=== PATIENT | male | born 1980 | race Two or more races ===

== ENCOUNTER 2018-11-08 22:27 | Inpatient (IN) | payer MEDICAID ==
[~2018-11-08] VITALS: Ht 167.6 cm; Wt 62.4 kg
[2018-11-08 22:27] VITALS: BP 141/98
--- NOTE | 2018-11-08 22:27 | NUR ---
ED Nurse Note: Pt arrived ED from Home. C/o chest pain today, 03/15. Pt is A/O X4. Bp 141/98, Hr 105, O2 sat 100% on room air. Dr. Sparks at bed side, waiting for orders.
[2018-11-08] MEDS ORDERED: Mylanta II UD 30ml ORAL ONE (22:30)
[2018-11-08] MEDS ORDERED: Aspirin Baby 81mg ORAL ONE (22:30)
--- NOTE | 2018-11-08 22:40 | NUR ---
ED Nurse Note: Blood and Urine collected and sent to Lab.
--- NOTE | 2018-11-08 22:46 | Emergency Room Report ---
History of Present Illness General Chief Complaint: Chest Pain Source: Patient, Friend Present Illness [facility] This a 38-year-old male with history of diabetes but not taking any medication. He hasn't seen a doctor in a while. He presents with chief complaint of chest pain. Onset was acute and occurred about an hour prior to arrival. Pain is sharp in nature. Localized to the left chest area. No radiation. No nausea no vomiting. No fever chills. No diaphoresis. No exertional component. Pain is 9 out of 10. He had one episode of pain like this before but never this severe. Not take anything for it. Allergies: Coded Allergies: No Known Allergies (Unverified , 11/08/18) Patient History Past Medical History: see triage record, old chart reviewed, DM Past Surgical History: other Pertinent Family History: none Social History: Reports: smoking Immunizations: other Reviewed Nursing Documentation: PMH: Agreed; PSxH: Agreed Review of Systems Eye: Denies: eye pain, blurred vision ENT: Denies: ear pain, nose congestion, throat swelling Respiratory: Denies: cough, shortness of breath Cardiovascular: Reports: chest pain; Denies: palpitations Gastrointestinal: Denies: abdominal pain, diarrhea, nausea, vomiting Musculoskeletal: Denies: back pain, joint pain Skin: Denies: rash Neurological: Denies: headache, numbness Endocrine: Denies: increased thirst, increased urine Hematologic/Lymphatic: Denies: easy bruising All Other Systems: negative except mentioned in HPI Physical Exam Vital Signs Date Time Temp Pulse Resp B/P (MAP) Pulse Ox O2 Delivery O2 Flow Rate FiO2 11/08/18 22:35 98.1 79 25 143/102 100 Room Air vitals with high blood pressure. Repeat normal. Sp02 EP Interpretation: reviewed, normal General Appearance: well appearing, no apparent distress, alert Head: normocephalic, atraumatic Eyes: bilateral eye PERRL, bilateral eye EOMI ENT: hearing grossly normal, normal pharynx Neck: full range of motion, supple, no meningismus Respiratory: chest non-tender, lungs clear, normal breath sounds Cardiovascular #1: regular rate, rhythm, no murmur Gastrointestinal: normal bowel sounds, non tender, no mass, no organomegaly, no bruit, non-distended Musculoskeletal: back normal, gait/station normal, normal range of motion Psychiatric: mood/affect normal Skin: warm/dry Medical Decision Making Diagnostic Impression: Primary Impression: Methamphetamine abuse Additional Impressions: Hyperglycemia due to type 2 diabetes mellitus Qualified Codes: E11.65 - Type 2 diabetes mellitus with hyperglycemia ACS (acute coronary syndrome) ER Course Patient present with sharp chest pain status post drug abuse. First troponin was slightly abnormal in the indeterminate zone. Second troponin getting higher very I suspect that this may be a non-STEMI. Patient is pain-free. He received aspirin and Lovenox here. Will admit for further workup. Hyperglycemia treated with Lovenox. I Contacted Dr. Zavala for admission. Lab Results Impression labs unremarkable EKG Diagnostic Results Rate: normal Rhythm: NSR ST Segments: no acute changes ASA given to the pt in ED: Yes Rhythm Strip Diag. Results Rhythm Strip Time: 22:46 EP Interpretation: yes Rate: 95 Rhythm: NSR, no PVC's, no ectopy Chest X-Ray Diagnostic Results Chest X-Ray Diagnostic Results : Chest X-Ray Ordered: Yes # of Views/Limited/Complete: 1 View Indication: Chest Pain EP Interpretation: Yes Interpretation: no consolidation, no effusion, no pneumothorax, no acute cardiopulmonary disease Impression: No acute disease Electronically Signed by: Omi Sparks MD Last Vital Signs Date Time Temp Pulse Resp B/P (MAP) Pulse Ox O2 Delivery O2 Flow Rate FiO2 11/08/18 22:35 98.1 79 25 143/102 100 Room Air Status: improved Disposition: ADMITTED INPATIENT Condition: Serious Scripts Metformin Hcl* (METFORMIN HCL*) 500 Mg Tablet 500 MG ORAL TWICE A DAY, #60 TAB Prov: Omi Sparks MD 11/09/18 Patient Instructions: Nonspecific Chest Pain Additional Instructions: . Omi Sparks MD Nov 08, 2018 22:46
[2018-11-08 22:48] LABS: BASOPHILS % (AUTO) 0.6 % (0.0-2.0); EOSINOPHILS % (AUTO) 0.1 % (0.0-3.0); HEMATOCRIT 47.9 % (42.0-52.0); HEMOGLOBIN 17.1 G/DL (14.2-18.0); LYMPHOCYTES % (AUTO) 13.9 % (20.0-45.0); MEAN CORPUSCULAR VOLUME 87 FL (80-99); MONOCYTES % (AUTO) 4.9 % (1.0-10.0); NEUTROPHILS % (AUTO) 80.5 % (45.0-75.0); PLATELET COUNT 183 K/UL (150-450); RED BLOOD COUNT 5.51 M/UL (4.70-6.10); RED CELL DISTRIBUTION WIDTH 11.3 % (11.6-14.8); WHITE BLOOD COUNT 10.6 K/UL (4.8-10.8)
--- NOTE | 2018-11-08 22:50 | NUR ---
ED Nurse Note: Meds given as ordered.
[2018-11-08 23:00] LABS: ANION GAP 9 mmol/L (5-15); BLOOD UREA NITROGEN 13 mg/dL (7-18); CALCIUM 9.7 MG/DL (8.5-10.1); CARBON DIOXIDE 25 MMOL/L (21-32); CHLORIDE 100 MMOL/L (98-107); CREATININE 1.1 MG/DL (0.55-1.30); SODIUM 134 MMOL/L (136-145)
[2018-11-08 23:10] LABS: APPEARANCE,URINE SLIGHTLY CLOUDY; BILIRUBIN, URINE NEGATIVE (NEGATIVE); COLOR,URINE PALE YELLOW; GLUCOSE, URINE (UA) 4+ (NEGATIVE); KETONES,URINE 3+ (NEGATIVE); LEUKOCYTE ESTERASE ,URINE NEGATIVE (NEGATIVE); NITRITE,URINE POSITIVE (NEGATIVE); PH,URINE 6.5 (4.5-8.0); PROTEIN,URINE 2+ (NEGATIVE); UROBILINOGEN,URINE NORMAL MG/DL (0.0-1.0)
[2018-11-08 23:12] LABS: ALANINE AMINOTRANSFERASE 27 U/L (12-78); ALBUMIN 4.2 G/DL (3.4-5.0); ALBUMIN/GLOBULIN RATIO 1.3 (1.0-2.7); ALKALINE PHOSPHATASE 161 U/L (46-116); ASPARTATE AMINO TRANSFERASE 14 U/L (15-37); BILIRUBIN,TOTAL 0.6 MG/DL (0.2-1.0); CKMB 1.7 NG/ML (0.0-3.6); CREATINE KINASE 117 U/L (26-308)
[2018-11-08] MEDS ORDERED: Insulin Human Regular 100units/ml 3ml IV ONE (23:15)
[2018-11-08] MEDS ORDERED: NKM (23:20)
[2018-11-09] MEDS ORDERED: METFORMIN HCL500 M1 ORAL (00:39)
[2018-11-09] MEDS ORDERED: Insulin Human Regular 100units/ml 3ml IV ONE (00:45)
[2018-11-09] MEDS ORDERED: Enoxaparin 80mg Inj SUBQ ONE (01:30)
[2018-11-09] MEDS ORDERED: Sodium Chloride 500ML 500 ML IVLG SCH (03:15)
[2018-11-09 03:30] VITALS: BP 125/79
--- NOTE | 2018-11-09 03:30 | NUR ---
TRANSFER TO FLOOR: Patient transferred to Tele/202 as ordered. Report given to Chema/TERELL. Belongings sent with Pt and rechecked with RN. Accompanied by his family.
--- NOTE | 2018-11-09 03:40 | NUR ---
NURSE NOTES: Received patient from TERELL Chaves via [facility]. Patient is awake ao x4. Breathing even and non labored on room air. Placed on manager cardiac cath showing SR. Vital signs stable. Oriented to room and unit. Bed in lowest position. Call light within reach. Admission orders received and carried out.
[2018-11-09] MEDS ORDERED: Nitroglycerin Subl 0.4mg tab SL PRN (06:00)
[2018-11-09] MEDS ORDERED: Heparin 5000 units/ml inj SUBQ SCH (06:00)
--- NOTE | 2018-11-09 07:25 | NUR ---
HAND-OFF: Report given to TERELL Helton. Patient is awake with no signs of distress. Vital signs stable.
--- NOTE | 2018-11-09 07:30 | NUR ---
NURSE NOTES: Received report from TERELL Bear. Pt is sitting up in bed eating breakfast. No distress noted. Bed is in lowest position, side rails up X2, and call light is within reach. Will continue to monitor.
[2018-11-09 08:00] VITALS: BP 107/68
[2018-11-09] MEDS: Aspirin Baby 81mg ORAL SCH (08:06)
[2018-11-09 08:24] LABS: BASOPHILS % (AUTO) 0.9 % (0.0-2.0); EOSINOPHILS % (AUTO) 0.3 % (0.0-3.0); HEMOGLOBIN 16.4 G/DL (14.2-18.0); LYMPHOCYTES % (AUTO) 27.2 % (20.0-45.0); MEAN CORPUSCULAR VOLUME 87 FL (80-99); MONOCYTES % (AUTO) 7.9 % (1.0-10.0); NEUTROPHILS % (AUTO) 63.8 % (45.0-75.0); PLATELET COUNT 198 K/UL (150-450); RED BLOOD COUNT 5.29 M/UL (4.70-6.10); RED CELL DISTRIBUTION WIDTH 11.3 % (11.6-14.8); WHITE BLOOD COUNT 9.3 K/UL (4.8-10.8)
[2018-11-09 08:42] LABS: ALANINE AMINOTRANSFERASE 22 U/L (12-78); ALBUMIN 3.8 G/DL (3.4-5.0); ALBUMIN/GLOBULIN RATIO 1.2 (1.0-2.7); ALKALINE PHOSPHATASE 129 U/L (46-116); ANION GAP 11 mmol/L (5-15); ASPARTATE AMINO TRANSFERASE 27 U/L (15-37); BILIRUBIN,TOTAL 0.5 MG/DL (0.2-1.0); BLOOD UREA NITROGEN 13 mg/dL (7-18); CALCIUM 8.8 MG/DL (8.5-10.1); CARBON DIOXIDE 25 MMOL/L (21-32); CHLORIDE 103 MMOL/L (98-107); CHOLESTEROL 194 MG/DL (< 200); CREATININE 0.8 MG/DL (0.55-1.30); HDL CHOLESTEROL 43 MG/DL (40-60); PHOSPHORUS 4.7 MG/DL (2.5-4.9); POTASSIUM 2.9 MMOL/L (3.5-5.1); SODIUM 139 MMOL/L (136-145); TRIGLYCERIDES 132 MG/DL (30-150)
--- NOTE | 2018-11-09 08:54 | NUR ---
NURSE NOTEs: Received call from Emiliana from Lab. Pts Troponin is 2.614. Per MD Zavala, start Heparin drip and and add billing associate as consult. Orders noted and carried out.
[2018-11-09] MEDS ORDERED: Aspirin Baby 81mg NG SCH (09:00)
[2018-11-09 09:22] LABS: BASOPHILS % (AUTO) 0.6 % (0.0-2.0); EOSINOPHILS % (AUTO) 0.3 % (0.0-3.0); HEMOGLOBIN 15.3 G/DL (14.2-18.0); LYMPHOCYTES % (AUTO) 18.3 % (20.0-45.0); MEAN CORPUSCULAR VOLUME 88 FL (80-99); MONOCYTES % (AUTO) 6.2 % (1.0-10.0); NEUTROPHILS % (AUTO) 74.6 % (45.0-75.0); PLATELET COUNT 177 K/UL (150-450); RED CELL DISTRIBUTION WIDTH 11.5 % (11.6-14.8)
[2018-11-09] MEDS ORDERED: Heparin 25,000u/D5W 500ml 500 ML IV SCH ×2 (09:22→16:30)
--- NOTE | 2018-11-09 09:30 | NUR ---
CASE MANAGEMENT:REVIEW 38 YR OLD MALE FROM HOME TO ER CC; CHEST PAIN SI: ACS. METHAMPHETAMINE ABUSE HYPERGLYCEMIA 98.0 79 25 143/102 100% ON RA GLUCOSE+416 TROPONIN(+) 0.245 AND 2.614 URINE (+) METHAMPHETAMINE IS: ASA PO IV INSULIN X2 LOVENOX CXR : TO TELEMETRY IS: HEPARIN GTT ASA PO QD ; INTERQUAL CRITERIA MET
--- NOTE | 2018-11-09 11:43 | Consultation ---
History of Present Illness General Date patient seen: Nov 09, 2018 Chief Complaint: Chest Pain Present Illness HPI 38-year-old male with history of diabetes, uncontrolled, presents with chief complaint of chest pain. Onset was acute and occurred about an hour prior to arrival. Pain is sharp in nature. Localized to the left chest area. Pain is 9 out of 10. Not take anything for it.No radiation. No nausea no vomiting. No fever chills. No diaphoresis. Pt is admitted to telemetry for further management. Allergies: Coded Allergies: No Known Allergies (Unverified , 11/08/18) Medication History Scheduled Metformin Hcl* (Metformin Hcl*), 500 MG ORAL TWICE A DAY No Known Medications* (NKM - No Known Medications*), 0 ., (Reported) Patient History Healthcare decision maker Resuscitation status Full Code Advanced Directive on File Past Medical/Surgical History Past Medical/Surgical History: (1) Diabetes mellitus Review of Systems All Other Systems: negative except mentioned in HPI Physical Exam General Appearance: WD/WN Lines, tubes and drains: peripheral HEENT: normocephalic, atraumatic Neck: non-tender, supple Respiratory/Chest: chest wall non-tender, lungs clear Cardiovascular/Chest: normal peripheral pulses Abdomen: normal bowel sounds Genitourinary/Rectal: normal genital exam Last 24 Hour Vital Signs Date Time Temp Pulse Resp B/P (MAP) Pulse Ox O2 Delivery O2 Flow Rate FiO2 11/09/18 09:00 Room Air 11/09/18 08:00 98.3 99 18 107/68 (81) 98 11/09/18 08:00 99 11/09/18 03:57 Room Air 11/09/18 03:30 97.5 102 18 125/79 (94) 97 11/09/18 03:30 97.5 99 18 126/75 97 Room Air 11/09/18 03:27 107 11/08/18 22:35 98.1 79 25 143/102 100 Room Air 11/08/18 22:27 82.2 105 15 141/98 100 Room Air 11/08/18 22:27 105 15 Room Air Intake and Output 11/08/18 11/09/18 19:00 07:00 Intake Total 100 ml Output Total 200 ml Balance -100 ml Intake Oral 100 ml Output Urine Total 200 ml # Voids 1 Laboratory Tests Test 11/08/18 22:30 11/08/18 22:50 11/09/18 00:38 11/09/18 06:45 White Blood Count 10.6 K/UL (4.8-10.8) 9.3 K/UL (4.8-10.8) Red Blood Count 5.51 M/UL (4.70-6.10) 5.29 M/UL (4.70-6.10) Hemoglobin 17.1 G/DL (14.2-18.0) 16.4 G/DL (14.2-18.0) Hematocrit 47.9 % (42.0-52.0) 46.0 % (42.0-52.0) Mean Corpuscular Volume 87 FL (80-99) 87 FL (80-99) Mean Corpuscular Hemoglobin 31.0 PG (27.0-31.0) 31.0 PG (27.0-31.0) Mean Corpuscular Hemoglobin Concent 35.6 G/DL (32.0-36.0) 35.6 G/DL (32.0-36.0) Red Cell Distribution Width 11.3 % (11.6-14.8) L 11.3 % (11.6-14.8) L Platelet Count 183 K/UL (150-450) 198 K/UL (150-450) Mean Platelet Volume 8.4 FL (6.5-10.1) 7.8 FL (6.5-10.1) Neutrophils (%) (Auto) 80.5 % (45.0-75.0) H 63.8 % (45.0-75.0) Lymphocytes (%) (Auto) 13.9 % (20.0-45.0) L 27.2 % (20.0-45.0) Monocytes (%) (Auto) 4.9 % (1.0-10.0) 7.9 % (1.0-10.0) Eosinophils (%) (Auto) 0.1 % (0.0-3.0) 0.3 % (0.0-3.0) Basophils (%) (Auto) 0.6 % (0.0-2.0) 0.9 % (0.0-2.0) Sodium Level 134 MMOL/L (136-145) L 139 MMOL/L (136-145) Potassium Level 4.0 MMOL/L (3.5-5.1) 2.9 MMOL/L (3.5-5.1) L Chloride Level 100 MMOL/L (98-107) 103 MMOL/L (98-107) Carbon Dioxide Level 25 MMOL/L (21-32) 25 MMOL/L (21-32) Anion Gap 9 mmol/L (5-15) 11 mmol/L (5-15) Blood Urea Nitrogen 13 mg/dL (7-18) 13 mg/dL (7-18) Creatinine 1.1 MG/DL (0.55-1.30) 0.8 MG/DL (0.55-1.30) Estimat Glomerular Filtration Rate > 60 mL/min (>60) > 60 mL/min (>60) Glucose Level 416 MG/DL (74-106) H 118 MG/DL (74-106) #H Calcium Level 9.7 MG/DL (8.5-10.1) 8.8 MG/DL (8.5-10.1) Total Bilirubin 0.6 MG/DL (0.2-1.0) 0.5 MG/DL (0.2-1.0) Aspartate Amino Transf (AST/SGOT) 14 U/L (15-37) L 27 U/L (15-37) Alanine Aminotransferase (ALT/SGPT) 27 U/L (12-78) 22 U/L (12-78) Alkaline Phosphatase 161 U/L (46-116) H 129 U/L (46-116) H Total Creatine Kinase 117 U/L (26-308) Creatine Kinase MB 1.7 NG/ML (0.0-3.6) Creatine Kinase MB Relative Index 1.4 Troponin I 0.011 ng/mL (0.000-0.056) 0.245 ng/mL (0.000-0.056) 2.614 ng/mL (0.000-0.056) Total Protein 7.5 G/DL (6.4-8.2) 7.1 G/DL (6.4-8.2) Albumin 4.2 G/DL (3.4-5.0) 3.8 G/DL (3.4-5.0) Globulin 3.3 g/dL 3.3 g/dL Albumin/Globulin Ratio 1.3 (1.0-2.7) 1.2 (1.0-2.7) Serum Alcohol < 3 mg/dL Urine Color Pale yellow Urine Appearance Slightly cloudy Urine pH 6.5 (4.5-8.0) Urine Specific [place] 1.015 (1.005-1.035) Urine Protein 2+ (NEGATIVE) H Urine Glucose (UA) 4+ (NEGATIVE) H Urine Ketones 3+ (NEGATIVE) H Urine Blood Negative (NEGATIVE) Urine Nitrite Positive (NEGATIVE) H Urine Bilirubin Negative (NEGATIVE) Urine Urobilinogen Normal MG/DL (0.0-1.0) Urine Leukocyte Esterase Negative (NEGATIVE) Urine RBC 0-2 /HPF (0 - 0) H Urine WBC 2-4 /HPF (0 - 0) Urine Squamous Epithelial Cells None /LPF (NONE/OCC) Urine Bacteria None /HPF (NONE) Urine Opiates Screen Negative (NEGATIVE) Urine Barbiturates Screen Negative (NEGATIVE) Phencyclidine (PCP) Screen Negative (NEGATIVE) Urine Amphetamines Screen Positive (NEGATIVE) H Urine Benzodiazepines Screen Negative (NEGATIVE) Urine Cocaine Screen Negative (NEGATIVE) Urine Marijuana (THC) Screen Negative (NEGATIVE) Phosphorus Level 4.7 MG/DL (2.5-4.9) Magnesium Level 2.1 MG/DL (1.8-2.4) Triglycerides Level 132 MG/DL (30-150) Cholesterol Level 194 MG/DL (< 200) LDL Cholesterol 132 mg/dL (<100) H HDL Cholesterol 43 MG/DL (40-60) Cholesterol/HDL Ratio 4.5 (3.3-4.4) H Test 11/09/18 09:10 White Blood Count 9.0 K/UL (4.8-10.8) Red Blood Count 4.90 M/UL (4.70-6.10) Hemoglobin 15.3 G/DL (14.2-18.0) Hematocrit 43.0 % (42.0-52.0) Mean Corpuscular Volume 88 FL (80-99) Mean Corpuscular Hemoglobin 31.2 PG (27.0-31.0) H Mean Corpuscular Hemoglobin Concent 35.6 G/DL (32.0-36.0) Red Cell Distribution Width 11.5 % (11.6-14.8) L Platelet Count 177 K/UL (150-450) Mean Platelet Volume 8.0 FL (6.5-10.1) Neutrophils (%) (Auto) 74.6 % (45.0-75.0) Lymphocytes (%) (Auto) 18.3 % (20.0-45.0) L Monocytes (%) (Auto) 6.2 % (1.0-10.0) Eosinophils (%) (Auto) 0.3 % (0.0-3.0) Basophils (%) (Auto) 0.6 % (0.0-2.0) Activated Partial Thromboplast Time 38 SEC (23-33) H Hemoglobin A1c Pending Height (Feet): 5 Height (Inches): 6.00 Weight (Pounds): 135 Medications Current Medications Medications (Trade) Dose Ordered Sig/Kelvin Route PRN Reason Start Time Stop Time Status Last Admin Dose Admin Aspirin (ASA) 81 mg DAILY ORAL 11/09/18 09:00 12/09/18 08:59 11/09/18 08:06 Heparin Sodium/ Dextrose 500 ml @ 14.975 mls/ hr ADJUST PER PROTOCOL IV 11/09/18 09:22 12/09/18 09:21 11/09/18 09:33 Nitroglycerin (Ntg) 0.4 mg Q4H PRN SL Prn Chest Pain 11/09/18 06:00 12/09/18 05:59 Assessment/Plan Problem List: (1) Non-ST elevation (NSTEMI) myocardial infarction ICD Codes: I21.4 - Non-ST elevation (NSTEMI) myocardial infarction SNOMED: 070151915 (2) Uncontrolled diabetes mellitus ICD Codes: E11.65 - Type 2 diabetes mellitus with hyperglycemia SNOMED: 88314914, 417028661 Assessment/Plan IV heprian Echocardiogram f/u troponin sliding scale. Thang Hernandez MD Nov 09, 2018 11:43
[2018-11-09 11:56] VITALS: BP 125/88
--- NOTE | 2018-11-09 12:19 | NUR ---
NURSE NOTES: Pt is sitting up in bed. No signs of bleeding noted. Will continue to monitor.
--- NOTE | 2018-11-09 12:33 | NUR ---
NURSE NOTES: Pts troponin level is trending up. Called and left message for Dr. Pope with answering service.
--- NOTE | 2018-11-09 14:14 | Cardiac Electrophysiology PN ---
Subjective Subjective [id number] Objective Last 24 Hour Vital Signs Date Time Temp Pulse Resp B/P (MAP) Pulse Ox O2 Delivery O2 Flow Rate FiO2 11/09/18 12:00 91 11/09/18 11:56 98.2 98 18 125/88 (100) 98 11/09/18 09:00 Room Air 11/09/18 08:00 98.3 99 18 107/68 (81) 98 11/09/18 08:00 99 11/09/18 03:57 Room Air 11/09/18 03:30 97.5 102 18 125/79 (94) 97 11/09/18 03:30 97.5 99 18 126/75 97 Room Air 11/09/18 03:27 107 11/08/18 22:35 98.1 79 25 143/102 100 Room Air 11/08/18 22:27 82.2 105 15 141/98 100 Room Air 11/08/18 22:27 105 15 Room Air Intake and Output 11/08/18 11/09/18 19:00 07:00 Intake Total 100 ml Output Total 200 ml Balance -100 ml Intake Oral 100 ml Output Urine Total 200 ml # Voids 1 Laboratory Tests Test 11/08/18 22:30 11/08/18 22:50 11/09/18 00:38 11/09/18 06:45 White Blood Count 10.6 K/UL (4.8-10.8) 9.3 K/UL (4.8-10.8) Red Blood Count 5.51 M/UL (4.70-6.10) 5.29 M/UL (4.70-6.10) Hemoglobin 17.1 G/DL (14.2-18.0) 16.4 G/DL (14.2-18.0) Hematocrit 47.9 % (42.0-52.0) 46.0 % (42.0-52.0) Mean Corpuscular Volume 87 FL (80-99) 87 FL (80-99) Mean Corpuscular Hemoglobin 31.0 PG (27.0-31.0) 31.0 PG (27.0-31.0) Mean Corpuscular Hemoglobin Concent 35.6 G/DL (32.0-36.0) 35.6 G/DL (32.0-36.0) Red Cell Distribution Width 11.3 % (11.6-14.8) L 11.3 % (11.6-14.8) L Platelet Count 183 K/UL (150-450) 198 K/UL (150-450) Mean Platelet Volume 8.4 FL (6.5-10.1) 7.8 FL (6.5-10.1) Neutrophils (%) (Auto) 80.5 % (45.0-75.0) H 63.8 % (45.0-75.0) Lymphocytes (%) (Auto) 13.9 % (20.0-45.0) L 27.2 % (20.0-45.0) Monocytes (%) (Auto) 4.9 % (1.0-10.0) 7.9 % (1.0-10.0) Eosinophils (%) (Auto) 0.1 % (0.0-3.0) 0.3 % (0.0-3.0) Basophils (%) (Auto) 0.6 % (0.0-2.0) 0.9 % (0.0-2.0) Sodium Level 134 MMOL/L (136-145) L 139 MMOL/L (136-145) Potassium Level 4.0 MMOL/L (3.5-5.1) 2.9 MMOL/L (3.5-5.1) L Chloride Level 100 MMOL/L (98-107) 103 MMOL/L (98-107) Carbon Dioxide Level 25 MMOL/L (21-32) 25 MMOL/L (21-32) Anion Gap 9 mmol/L (5-15) 11 mmol/L (5-15) Blood Urea Nitrogen 13 mg/dL (7-18) 13 mg/dL (7-18) Creatinine 1.1 MG/DL (0.55-1.30) 0.8 MG/DL (0.55-1.30) Estimat Glomerular Filtration Rate > 60 mL/min (>60) > 60 mL/min (>60) Glucose Level 416 MG/DL (74-106) H 118 MG/DL (74-106) #H Calcium Level 9.7 MG/DL (8.5-10.1) 8.8 MG/DL (8.5-10.1) Total Bilirubin 0.6 MG/DL (0.2-1.0) 0.5 MG/DL (0.2-1.0) Aspartate Amino Transf (AST/SGOT) 14 U/L (15-37) L 27 U/L (15-37) Alanine Aminotransferase (ALT/SGPT) 27 U/L (12-78) 22 U/L (12-78) Alkaline Phosphatase 161 U/L (46-116) H 129 U/L (46-116) H Total Creatine Kinase 117 U/L (26-308) Creatine Kinase MB 1.7 NG/ML (0.0-3.6) Creatine Kinase MB Relative Index 1.4 Troponin I 0.011 ng/mL (0.000-0.056) 0.245 ng/mL (0.000-0.056) 2.614 ng/mL (0.000-0.056) Total Protein 7.5 G/DL (6.4-8.2) 7.1 G/DL (6.4-8.2) Albumin 4.2 G/DL (3.4-5.0) 3.8 G/DL (3.4-5.0) Globulin 3.3 g/dL 3.3 g/dL Albumin/Globulin Ratio 1.3 (1.0-2.7) 1.2 (1.0-2.7) Serum Alcohol < 3 mg/dL Urine Color Pale yellow Urine Appearance Slightly cloudy Urine pH 6.5 (4.5-8.0) Urine Specific [place] 1.015 (1.005-1.035) Urine Protein 2+ (NEGATIVE) H Urine Glucose (UA) 4+ (NEGATIVE) H Urine Ketones 3+ (NEGATIVE) H Urine Blood Negative (NEGATIVE) Urine Nitrite Positive (NEGATIVE) H Urine Bilirubin Negative (NEGATIVE) Urine Urobilinogen Normal MG/DL (0.0-1.0) Urine Leukocyte Esterase Negative (NEGATIVE) Urine RBC 0-2 /HPF (0 - 0) H Urine WBC 2-4 /HPF (0 - 0) Urine Squamous Epithelial Cells None /LPF (NONE/OCC) Urine Bacteria None /HPF (NONE) Urine Opiates Screen Negative (NEGATIVE) Urine Barbiturates Screen Negative (NEGATIVE) Phencyclidine (PCP) Screen Negative (NEGATIVE) Urine Amphetamines Screen Positive (NEGATIVE) H Urine Benzodiazepines Screen Negative (NEGATIVE) Urine Cocaine Screen Negative (NEGATIVE) Urine Marijuana (THC) Screen Negative (NEGATIVE) Phosphorus Level 4.7 MG/DL (2.5-4.9) Magnesium Level 2.1 MG/DL (1.8-2.4) Triglycerides Level 132 MG/DL (30-150) Cholesterol Level 194 MG/DL (< 200) LDL Cholesterol 132 mg/dL (<100) H HDL Cholesterol 43 MG/DL (40-60) Cholesterol/HDL Ratio 4.5 (3.3-4.4) H Test 11/09/18 09:10 11/09/18 11:45 White Blood Count 9.0 K/UL (4.8-10.8) Red Blood Count 4.90 M/UL (4.70-6.10) Hemoglobin 15.3 G/DL (14.2-18.0) Hematocrit 43.0 % (42.0-52.0) Mean Corpuscular Volume 88 FL (80-99) Mean Corpuscular Hemoglobin 31.2 PG (27.0-31.0) H Mean Corpuscular Hemoglobin Concent 35.6 G/DL (32.0-36.0) Red Cell Distribution Width 11.5 % (11.6-14.8) L Platelet Count 177 K/UL (150-450) Mean Platelet Volume 8.0 FL (6.5-10.1) Neutrophils (%) (Auto) 74.6 % (45.0-75.0) Lymphocytes (%) (Auto) 18.3 % (20.0-45.0) L Monocytes (%) (Auto) 6.2 % (1.0-10.0) Eosinophils (%) (Auto) 0.3 % (0.0-3.0) Basophils (%) (Auto) 0.6 % (0.0-2.0) Activated Partial Thromboplast Time 38 SEC (23-33) H Hemoglobin A1c 10.7 % (4.3-6.0) H Troponin I 4.815 ng/mL (0.000-0.056) Yuniel Pope MD Nov 09, 2018 14:14
[2018-11-09 16:00] VITALS: BP 110/74
--- NOTE | 2018-11-09 16:00 | Consultation ---
DATE OF CONSULTATION: 11/09/2018 CARDIOLOGY CONSULTATION CONSULTING PHYSICIAN: Yuniel Pope M.D. REFERRING PHYSICIAN: Flo Zavala M.D. REASON FOR CONSULTATION: Post-cocaine myocardial infarction. HISTORY OF PRESENT ILLNESS: The patient is a 38-year-old gentleman with history of diabetes, smoke cocaine at home and presented to emergency room with chest pain that was acute, he states it was 9/10. The patient then admitted to telemetry where his initial EKG was completely normal and troponin came back elevated. The patient was started on heparin drip and a Cardiology consultation was obtained for further evaluation and management. His echocardiogram also showed normal left ventricular systolic function, ejection fraction of 55%. REVIEW OF SYSTEMS: Review of systems was negative other than what is mentioned in the history of present illness. PAST MEDICAL HISTORY: Includes diabetes. MEDICATIONS: At home none. SOCIAL HISTORY: He lives at home. Occasionally smokes cocaine included day before admission. PHYSICAL EXAMINATION: VITAL SIGNS: Show blood pressure of 124/88, pulse 98, respirations 18, and temperature 98.2. HEAD AND NECK: No JVD. LUNGS: Clear. CARDIOVASCULAR: Regular S1 and S2 with no gallop or murmur. ABDOMEN: Soft. EXTREMITIES: No pitting edema. LABORATORY DATA: White count of 9, hemoglobin 15.7, hematocrit of 43, and platelet count is 177. Sodium 139, potassium 2.9, BUN of 13, creatinine 0.8, and glucose of 118. Troponin is 0.01, 0.245, 0.264, and 4.815. ASSESSMENT AND PLAN: 1. Acute non ST elevation myocardial infarction with rising troponins to 4.815. The patient is on heparin. This is likely induced by cocaine vasospasm. EKG however does not show any ST elevation or ST depression. His echocardiogram showed normal left ventricular systolic function. Urine toxicology screen positive for amphetamine but negative for cocaine. I offer the patient transferred to our facility for cardiac catheterization, but he refuses and would like to be treated just medically. We will keep him on aspirin and repeat the troponin. Put him on beta-krishan and statin. 2. History of diabetes. 3. Methamphetamine use as well as history of cocaine use Thank you very much, Dr. Zavala, for allowing me to participate in the care of this patient. Please do not hesitate to contact me for any questions regarding my evaluation. Sincerely, Yuniel Pope M.D. DR: Niru JOB#: [id number] CC:
[2018-11-09] MEDS ORDERED: Heparin 5000 units/ml inj IV SCH (16:30)
--- NOTE | 2018-11-09 17:02 | History & Physical ---
History and Physical History & Physicial Flo Zavala MD Nov 09, 2018 17:02
[2018-11-09] MEDS: NovoLOG Insulin Flexpen SUBQ SCH ×2 (17:17→21:51)
--- NOTE | 2018-11-09 19:00 | History and Physical Report ---
DATE OF ADMISSION: 11/09/2018 CHIEF COMPLAINT: Chest pain. HISTORY OF PRESENT ILLNESS: This is a 38-year-old gentleman with past medical history significant for diabetes type 2, does not take any medication, history of substance abuse, cocaine, who presented to the hospital complaining about chest pain, 9/10 in intensity, left-sided chest wall. Shortly after initial evaluation in the ER, the patient was admitted to the hospital for chest pain, possible acute coronary syndrome. The patient was noted to have elevated troponin and subsequently was admitted to the hospital with a non ST elevation HI. PAST MEDICAL HISTORY AND PAST SURGICAL HISTORY: As above. History of diabetes type 2. MEDICATIONS: None. ALLERGIES: No known drug allergies. SOCIAL HISTORY: The patient uses cocaine, drinks alcohol, smokes. Denies any intravenous drug abuse. FAMILY HISTORY: Noncontributory. REVIEW OF SYSTEMS: Mostly as above. Denies any dysuria, frequency, or hematuria. Denies any hemoptysis or hematochezia. PHYSICAL EXAMINATION: VITAL SIGNS: On admission from the ER, temperature of 98.1, pulse of 79, respirations 25, blood pressure 143/102. GENERAL: The patient is awake, responsive, in no acute distress. HEAD AND NECK: Pupils are reactive to light. Extraocular movements are intact. Neck was supple. No JVD. LUNGS: Good air entry. No wheezing or rales. HEART: S1 and S2. Regular rhythm. No murmur or gallops. ABDOMEN: Soft, nondistended, and nontender. Positive bowel sounds. EXTREMITIES: No cyanosis, clubbing, or edema NEUROLOGIC: Cranial nerves II through XII are grossly intact. Moves all four extremities. Gait is intact. RECTAL: Refused and deferred. GENITOURINARY: Refused and deferred LABORATORY AND DIAGNOSTIC DATA: WBC of 10.6, hemoglobin 17, hematocrit is 47, and platelets is 183. Sodium 139, potassium 2.9, chloride 103, bicarbonate 25, BUN 13, creatinine 0.8, glucose is 118. Hemoglobin A1c is 10.7. First troponin is 0.011, second troponin 0.245, and the third troponin is 2.614. Glucose is 194. LDL is 132, and HDL is 43. ASSESSMENT: 1. Chest pain, most likely secondary to non ST elevation HI. 2. History of diabetes type 2, uncontrolled, noncompliance with medication. 3. History of methamphetamine as well as cocaine abuse. PLAN: Admit the patient to telemetry. We will follow up with Dr. Pope from Cardiology. Dr. Hernandez, Pulmonary Critical Care. We will continue heparin drip. Monitor serial cardiac enzymes and 2D echo. Code status is Full Code. DVT prophylaxis, the patient on a heparin drip. Flo Zavala M.D. DR: Kyra JOB#: [id number] CC:
--- NOTE | 2018-11-09 19:35 | NUR ---
NURSE NOTES: Received pt. and report from TERELL Helton. Observe pt. resting in bed. court monitor is in place, IV site is intact, asymptomatic, and patent. Pt. is currently on Heparin drip; 14 units/kg/hr @ 17.471cc/hr. Bed is in the lowest position and locked. Call light within reach. No chest pain or acute distress noted at this time. Will continue plan of care.
--- NOTE | 2018-11-09 19:35 | NUR ---
NURSE NOTES: Received call from Rylee in lab. patients troponin is still trending up. Notified TERELL Barth
--- NOTE | 2018-11-09 19:41 | NUR ---
HAND-OFF: Report given to TERELL Barth. Notified her of pts new troponin level. She will inform .
[2018-11-09 20:00] VITALS: BP 122/80
--- NOTE | 2018-11-09 20:17 | NUR ---
NURSE NOTES: Left a message for Dr. Pope regarding troponin level of 5.567. Awaiting called back.
[2018-11-09] MEDS ORDERED: Atorvastatin 20mg tab ORAL SCH (21:00)
--- NOTE | 2018-11-09 21:42 | NUR ---
NURSE NOTES: Dr. Pope called back regarding troponin level of 5.567. No orders at this time.
--- NOTE | 2018-11-09 23:08 | NUR ---
NURSE NOTES: Jaelyn Smith called to inform that rate of Heparin drip will stay the same; 14 units/kg/hr @ 17.471cc/hr
[2018-11-10] VITALS: BP 122/79
--- NOTE | 2018-11-10 03:30 | NUR ---
Clau from lab called regarding treading down troponin of 4.432
[2018-11-10 04:00] VITALS: BP 121/77
[2018-11-10] MEDS ORDERED: Heparin 5000 units/ml inj IV SCH (04:00)
[2018-11-10] MEDS: Heparin 25,000u/D5W 500ml 500 ML IV SCH ×2 (04:10→10:49)
--- NOTE | 2018-11-10 04:10 | NUR ---
NURSE NOTES: [facility] called regarding PTT of 54. Patient received bolus of 2,500 unit of Heparin. Pharmacy increased rate to 16 units/kg/hr @ 19.967ml/hr.
[2018-11-10] MEDS: NovoLOG Insulin Flexpen SUBQ SCH ×2 (06:43→11:23)
--- NOTE | 2018-11-10 07:44 | NUR ---
HAND-OFF: Report given to TERELL Blake. Pt. is in stable condition. Plan of care endorsed.
--- NOTE | 2018-11-10 07:45 | NUR ---
NURSE NOTES: Received patient from TERELL Barth. Patient is resting in bed, in stable condition. Alert and oriented x4. No signs and symptoms of any distress at this time. Heparin drip is running in RX dose . Call light and side table is within reach. Bed brakes engaged. Will continue to monitor and follow plan of care.
[2018-11-10 08:00] VITALS: BP 124/82
[2018-11-10] MEDS: Aspirin Baby 81mg ORAL SCH (08:55)
[2018-11-10] MEDS ORDERED: dilTIAZem HCl CD 120mg cap ORAL SCH (09:00)
--- NOTE | 2018-11-10 10:47 | Pulmonology Progress Note ---
Assessment/Plan Problems: (1) Non-ST elevation (NSTEMI) myocardial infarction (2) Uncontrolled diabetes mellitus Assessment/Plan on heparin drip sliding scale f/u cardio recommendations Subjective ROS Limited/Unobtainable: No Interval Events: no new complains Allergies: Coded Allergies: No Known Allergies (Unverified , 11/08/18) Objective Last 24 Hour Vital Signs Date Time Temp Pulse Resp B/P (MAP) Pulse Ox O2 Delivery O2 Flow Rate FiO2 11/10/18 09:00 Room Air 11/10/18 08:55 89 124/82 11/10/18 08:00 88 11/10/18 08:00 97.9 89 20 124/82 (96) 99 11/10/18 04:00 97.9 89 18 121/77 (92) 99 11/10/18 04:00 92 11/10/18 00:00 96 11/10/18 00:00 98.2 93 18 122/79 (93) 98 11/09/18 21:00 Room Air 11/09/18 20:00 97 11/09/18 20:00 98.1 100 18 122/80 (94) 98 11/09/18 16:00 98.1 93 18 110/74 (86) 97 11/09/18 16:00 93 11/09/18 12:00 91 11/09/18 11:56 98.2 98 18 125/88 (100) 98 Intake and Output 11/09/18 11/10/18 19:00 07:00 Intake Total 487.288 ml 159.934 ml Output Total 1000 ml 700 ml Balance -512.712 ml -540.066 ml Intake Oral 360 ml 120 ml IV Total 127.288 ml 39.934 ml Output Urine Total 1000 ml 700 ml # Voids 1 General Appearance: WD/WN HEENT: normocephalic, anicteric Respiratory/Chest: chest wall non-tender, lungs clear Cardiovascular: normal peripheral pulses, normal rate Abdomen: normal bowel sounds, soft, non tender Extremities: no cyanosis Skin: no rash, no ulcers Laboratory Tests 11/09/18 11:45: Troponin I 4.815H 11/09/18 15:30: Activated Partial Thromboplast Time 52H 11/09/18 18:50: Troponin I 5.567H 11/09/18 22:36: Activated Partial Thromboplast Time 65H 11/10/18 02:57: Activated Partial Thromboplast Time 54H, Troponin I 4.432H 11/10/18 09:56: Activated Partial Thromboplast Time 81H Current Medications Medications (Trade) Dose Ordered Sig/Kelvin Route PRN Reason Start Time Stop Time Status Last Admin Dose Admin Aspirin (ASA) 81 mg DAILY ORAL 11/09/18 09:00 12/09/18 08:59 11/10/18 08:55 Atorvastatin Calcium (Lipitor) 20 mg BEDTIME ORAL 11/09/18 21:00 12/09/18 20:59 11/09/18 21:50 Dextrose (Dextrose 50%) 25 ml STAT PRN IV Hypoglycemia 11/09/18 11:45 12/09/18 11:44 Dextrose (Dextrose 50%) 50 ml STAT PRN IV Hypoglycemia 11/09/18 11:45 12/09/18 11:44 Diltiazem HCl (Cardizem CD) 120 mg DAILY ORAL 11/10/18 09:00 12/10/18 08:59 11/10/18 08:55 Heparin Sodium (Porcine) (Heparin 5000 units/ml) 2,500 units ONCE IV 11/10/18 04:00 12/10/18 03:59 11/10/18 04:05 Heparin Sodium/ Dextrose 500 ml @ 19.967 mls/ hr ADJUST PER PROTOCOL IV 11/10/18 03:45 12/10/18 03:44 11/10/18 04:10 Insulin Aspart (NovoLOG) BEFORE MEALS AND HS SUBQ 11/09/18 16:30 12/09/18 16:29 11/10/18 06:43 Nitroglycerin (Ntg) 0.4 mg Q4H PRN SL Prn Chest Pain 11/09/18 06:00 12/09/18 05:59 Thang Hernandez MD Nov 10, 2018 10:47
[2018-11-10 12:00] VITALS: BP 101/64
--- NOTE | 2018-11-10 13:14 | Cardiac Electrophysiology PN ---
Assessment/Plan Assessment/Plan 1. Acute non ST elevation myocardial infarction with troponins to 5.5. Now down to 2. DC on heparin. This is likely induced by cocaine vasospasm. EKG however does not show any ST elevation or ST depression. His echocardiogram showed normal left ventricular systolic function. I offer the patient transferred to outside facility for cardiac catheterization, but he refuses and would like to be treated just medically. We will keep him on aspirin beta-krishan and statin. 2. History of diabetes. 3. Methamphetamine use as well as history of cocaine use DW RN Subjective Subjective No CP or SOB.In SR on tele. Objective Last 24 Hour Vital Signs Date Time Temp Pulse Resp B/P (MAP) Pulse Ox O2 Delivery O2 Flow Rate FiO2 11/10/18 12:00 98.2 86 20 101/64 (76) 98 11/10/18 12:00 87 11/10/18 09:00 Room Air 11/10/18 08:55 89 124/82 11/10/18 08:00 88 11/10/18 08:00 97.9 89 20 124/82 (96) 99 11/10/18 04:00 97.9 89 18 121/77 (92) 99 11/10/18 04:00 92 11/10/18 00:00 96 11/10/18 00:00 98.2 93 18 122/79 (93) 98 11/09/18 21:00 Room Air 11/09/18 20:00 97 11/09/18 20:00 98.1 100 18 122/80 (94) 98 11/09/18 16:00 98.1 93 18 110/74 (86) 97 11/09/18 16:00 93 Intake and Output 11/09/18 11/10/18 19:00 07:00 Intake Total 487.288 ml 159.934 ml Output Total 1000 ml 700 ml Balance -512.712 ml -540.066 ml Intake Oral 360 ml 120 ml IV Total 127.288 ml 39.934 ml Output Urine Total 1000 ml 700 ml # Voids 1 Laboratory Tests Test 11/09/18 15:30 11/09/18 18:50 11/09/18 22:36 11/10/18 02:57 Activated Partial Thromboplast Time 52 SEC (23-33) H 65 SEC (23-33) H 54 SEC (23-33) H Troponin I 5.567 ng/mL (0.000-0.056) 4.432 ng/mL (0.000-0.056) Test 11/10/18 09:56 11/10/18 11:46 Activated Partial Thromboplast Time 81 SEC (23-33) H Troponin I 2.799 ng/mL (0.000-0.056) Objective HEAD AND NECK: No JVD. LUNGS: Clear. CARDIOVASCULAR: Regular S1 and S2 with no gallop or murmur. ABDOMEN: Soft. EXTREMITIES: No pitting edema. Yuniel Pope MD Nov 10, 2018 13:14
[2018-11-10] MEDS ORDERED: ASPIRIN81 MG ORAL (13:54)
[2018-11-10] MEDS ORDERED: LIPITOR20 MG ORAL (13:54)
--- NOTE | 2018-11-10 14:02 | Internal Med Progress Note ---
Subjective Date of Service: Nov 10, 2018 Physician Name Eddie Goodrich Attending Physician Flo Zavala MD Current Medications Medications (Trade) Dose Ordered Sig/Kelvin Route PRN Reason Start Time Stop Time Status Last Admin Dose Admin Aspirin (ASA) 81 mg DAILY ORAL 11/09/18 09:00 12/09/18 08:59 11/10/18 08:55 Atorvastatin Calcium (Lipitor) 20 mg BEDTIME ORAL 11/09/18 21:00 12/09/18 20:59 11/09/18 21:50 Dextrose (Dextrose 50%) 25 ml STAT PRN IV Hypoglycemia 11/09/18 11:45 12/09/18 11:44 Dextrose (Dextrose 50%) 50 ml STAT PRN IV Hypoglycemia 11/09/18 11:45 12/09/18 11:44 Diltiazem HCl (Cardizem CD) 120 mg DAILY ORAL 11/10/18 09:00 12/10/18 08:59 11/10/18 08:55 Insulin Aspart (NovoLOG) BEFORE MEALS AND HS SUBQ 11/09/18 16:30 12/09/18 16:29 11/10/18 11:23 Nitroglycerin (Ntg) 0.4 mg Q4H PRN SL Prn Chest Pain 11/09/18 06:00 12/09/18 05:59 Allergies: Coded Allergies: No Known Allergies (Unverified , 11/08/18) ROS Limited/Unobtainable: No Constitutional: Reports: no symptoms HEENT: Reports: no symptoms Cardiovascular: Reports: no symptoms Respiratory: Reports: no symptoms Gastrointestinal/Abdominal: Reports: no symptoms Genitourinary: Reports: no symptoms Neurologic/Psychiatric: Reports: no symptoms Subjective 38 YO M admitted with chest pain. Cover for Int Med-Dr Zavala. Objective Last Vital Signs Date Time Temp Pulse Resp B/P (MAP) Pulse Ox O2 Delivery O2 Flow Rate FiO2 11/10/18 12:00 98.2 86 20 101/64 (76) 98 11/10/18 09:00 Room Air General Appearance: WD/WN, no apparent distress, alert EENT: PERRL/EOMI, normal ENT inspection Neck: non-tender, normal alignment, supple, normal inspection Cardiovascular: normal peripheral pulses, normal rate, regular rhythm, no gallop/murmur, no JVD Respiratory/Chest: chest wall non-tender, lungs clear, normal breath sounds, no respiratory distress, no accessory muscle use Abdomen: normal bowel sounds, non tender, soft, no organomegaly, no mass Extremities: normal range of motion, non-tender Neurologic: agriculture research director II-XII grossly normal, no motor/sensory deficits Skin: normal pigmentation, warm/dry Laboratory Tests Test 11/09/18 15:30 11/09/18 18:50 11/09/18 22:36 11/10/18 02:57 Activated Partial Thromboplast Time 52 SEC (23-33) H 65 SEC (23-33) H 54 SEC (23-33) H Troponin I 5.567 ng/mL (0.000-0.056) 4.432 ng/mL (0.000-0.056) Test 11/10/18 09:56 11/10/18 11:46 Activated Partial Thromboplast Time 81 SEC (23-33) H Troponin I 2.799 ng/mL (0.000-0.056) Intake and Output 11/09/18 11/10/18 19:00 07:00 Intake Total 487.288 ml 159.934 ml Output Total 1000 ml 700 ml Balance -512.712 ml -540.066 ml Intake Oral 360 ml 120 ml IV Total 127.288 ml 39.934 ml Output Urine Total 1000 ml 700 ml # Voids 1 Assessment/Plan Problem List: (1) Chest pain Assessment & Plan: ?Due to cocaine/methamphetamine? See cardiology note. Refused cardiac cath-see cardiology note. OK to discharge per cardiology (2) Methamphetamine abuse (3) Uncontrolled diabetes mellitus Assessment & Plan: Continue metformin and novolog sliding scale (4) Non-ST elevation (NSTEMI) myocardial infarction (5) Hypercholesteremia Assessment & Plan: Continue lipitor Eddie Goodrich MD Nov 10, 2018 14:02
--- NOTE | 2018-11-10 14:44 | NUR ---
CASE MANAGEMENT:REVIEW 11/10/18 SI: NSTEMI METHAMPHETAMINE AND COCAINE USE 98.2 86 20 101/64 98% ON RA PTT+81 IS:CARDIZEM PO QD LIPITOR PO QHS ASA PO QD : TELEMETRY STATUS PLAN: DC HOME TODAY
--- NOTE | 2018-11-10 15:48 | Diagnostic Imaging Report ---
Indication: Chest pain Comparison: None A single view chest radiograph was obtained. Findings: Cardiomediastinal appearance is within normal limits for age. The lungs are clear. Pulmonary vascularity is appropriate. The diaphragmatic contour is smooth and costophrenic angles are sharp. No pleural effusions are identified. The bones are unremarkable. Impression: No acute findings
--- NOTE | 2018-11-10 16:00 | NUR ---
NURSE NOTES: Patient discharged home per 's order. All discharge instructions explained to patient, verbalized understanding. IV access removed. ID band removed and placed in shredder. Heart monitor removed and returned to case monitor. All patient's belonging returned to patient. Patient left the hospital in stable condition and with private car.
--- NOTE | 2018-11-12 10:59 | Discharge Summary ---
Discharge Summary Discharge Summary _ DATE OF ADMISSION: 11/09/2018 DATE OF DISCHARGE: 11/10/2018 DISCHARGED BY: Dr. Zavala REASON FOR ADMISSION: 38 years old male with past medical history of diabetes mellitus type 2, not on any medication, history of substance abuse/ cocaine, presented to the hospital complaining of chest wall pain, 9 out of 10 in intensity, left-sided. Laboratory workup revealed initial troponin -0.011 and the next troponin was - 0.245. EKG revealed sinus rhythm , no acute ischemic changes. Glucose 416 with stable anion gap and CO2. Urine toxicology screen was positive for amphetamine. Serum alcohol level was negative. Chest x-ray revealed no acute findings . Patient admitted with diagnosis of acute coronary syndrome, non-STEMI , hyperglycemia due to type 2 diabetes mellitus ,methamphetamine abuse. CONSULTANTS: structural steel painter Dr. Webb pulmonary Dr. Hernandez [facility] COURSE: Patient admitted to telemetry floor. Cardiology and pulmonology consult were requested. Patient started on anticoagulation with IV heparin. Group Billing Coordinator and stock broker supervisor followed. Per structural steel painter , acute non-STEMI likely was induced by cocaine vasospasm. EKG revealed no ST elevation or ST depression. Echocardiogram revealed preserved ejection fraction. Patient was given an option to transfer to outside facility for cardiac catheterization. Patient declined and preferred to be treated just medically. Lipid panel revealed stable total cholesterol and elevated LDL of 132, HDL 43 and triglycerides 132. Patient started initially on antiplatelet therapy and beta-krishan. Statin was added to existing regimen. Patient was counseled on low cholesterol low fat diabetic diet. Pain management was addressed as needed. Troponin trended down. Chest pain resolved. Supplemental oxygen was on board as needed. Pulse oximetry was stable on room air. Potassium was replaced. Hemoglobin A1c 10.7 , clearly not at goal. Blood sugar was managed with sliding scale of insulin while at the hospital. Upon discharge continue Metformin. Reinforce importance of compliance with medication regimen and follow up routinely with primary care provider for blood sugar control. Patient was counseled on abstinence from illicit street drug and compliance with medication regimen. FINAL DIAGNOSES: Acute NSTEMI Diabetes mellitus out of control Hypercholesterolemia Cocaine and methamphetamine abuse DISCHARGE MEDICATIONS: See Medication Reconciliation list. DISCHARGE INSTRUCTIONS: Patient was discharged home . Follow up with primary care provider in one week. Reinforced compliance with medication regimen. I have been assigned to dictate discharge summary for this account. .I was not involved in the patient's management. Monica Barnes NP Nov 12, 2018 10:59
== END 2018-11-10 16:00 | disposition home or self-care (01) | DRG 190 ==
LOC: EMR 22:57 → 2E 11-09 01:50 → EDBEDREQ 11-09 02:47
DX: I21.4 Non-ST elevation (NSTEMI) myocardial infarction (principal); E11.65 Type 2 diabetes mellitus with hyperglycemia; F14.188 Cocaine abuse with other cocaine-induced disorder; E78.00 Pure hypercholesterolemia, unspecified; F15.10 Other stimulant abuse, uncomplicated
CPT/HCPCS: 36415; 71045; 80053; 80061; 80307; 80329; 81003; 82550; 82553; 82962; 83036; 83735; 84100; 84484; 85025; 85730; 93005; 93306; 96374; 99285; J1815; J8499